=== PATIENT | male | born 1985 | race Caucasian/White ===

== ENCOUNTER 2017-01-03 23:19 | Emergency (ER) | payer MEDICAID ==
[~2017-01-03] VITALS: Ht 167.6 cm; Wt 89.0 kg
[2017-01-04] MEDS ORDERED: DICYCLOMINE 10 MG/5 ML ORAL SYR PO STA (02:48)
[2017-01-04] MEDS ORDERED: MAGNESIUM/ALUMINUM HYDROXIDE/SIMETHICONE 30ML UDC PO STA (02:48)
[2017-01-04] MEDS ORDERED: VISCOUS LIDOCAINE 2% 15 ML UDC PO STA (02:48)
[2017-01-04 03:17] LABS: BASOPHILS % 0.3 % (0.0-2.0); HEMATOCRIT. 44.2 % (42.0-52.0); HEMOGLOBIN. 15.3 g/dL (14.0-18.0); LYMPHOCYTES % 14.2 % (20.0-50.0); MEAN CORPUSCULAR VOLUME 86.5 fL (80.0-94.0); MEAN PLATELET VOLUME 8.3 fl (7.4-10.4); MONOCYTES % 9.7 % (2.0-8.0); NEUTROPHILS % 75.8 % (40.0-76.0); PLATELET 328 x1000/uL (130-400); RED BLOOD CELL COUNT 5.11 mill/uL (4.7-6.1); RED CELL DISTRIBUTION WIDTH 13.3 % (11.6-14.6)
[2017-01-04 03:19] LABS: CARBON DIOXIDE 22 mEq/L (21-32); CHLORIDE 103 mEq/L (98-107)
[2017-01-04 03:29] LABS: CLARITY URINE CLEAR (CLEAR); COLOR URINE YELLOW (YELLOW); GLUCOSE URINE NEGATIVE (NEGATIVE); KETONES URINE NEGATIVE (NEGATIVE); LEUKOCYTE ESTERASE URINE NEGATIVE (NEGATIVE); NITRITE URINE NEGATIVE (NEGATIVE); OCCULT BLOOD URINE NEGATIVE (NEGATIVE); PROTEIN URINE TRACE (NEGATIVE); SPECIFIC GRAVITY URINE 1.029 (1.005-1.030); UROBILINOGEN URINE 0.2 E.U./dL (0.2-1.0)
[2017-01-04] MEDS ORDERED: IBUPROFEN 800MG TABLET PO ONE (05:00)
[2017-01-04 05:08] VITALS: BP 120/79
== END 2017-01-04 05:05 | disposition home or self-care (01) ==
LOC: ER 23:21
DX: R10.9 Unspecified abdominal pain (principal); R19.7 Diarrhea, unspecified; R11.2 Nausea with vomiting, unspecified
CPT/HCPCS: 36415; 80053; 81001; 83690; 85025; 99284; Z7610

== ENCOUNTER 2020-12-06 22:25 | Emergency (ER) | payer MEDICAID ==
[~2020-12-06] VITALS: Ht 165.1 cm; Wt 91.0 kg
[2020-12-06 22:26] VITALS: BP 123/82
[2020-12-06] MEDS ORDERED: FLUORESCEIN SODIUM 1MG/STRIP RIGHTEYE ONE (23:00)
[2020-12-06] MEDS ORDERED: TETRACAINE 0.5% OPHTH DROPS 4ML RIGHTEYE ONE (23:00)
[2020-12-06] MEDS ORDERED: IBUPROFEN 600MG TABLET PO ONE (23:15)
[2020-12-07] MEDS ORDERED: NAPR-1176 MT (00:36)
== END 2020-12-07 01:17 | disposition home or self-care (01) ==
LOC: ER 22:25
DX: S00.211A Abrasion of right eyelid and periocular area, initial encounter (principal); S20.219A Contusion of unspecified front wall of thorax, initial encounter; M25.572 Pain in left ankle and joints of left foot; M25.562 Pain in left knee; M54.5 Low back pain; V49.9XXA Car occupant (driver) (passenger) injured in unspecified traffic accident, initial encounter; Y93.89 Activity, other specified; Y92.89 Other specified places as the place of occurrence of the external cause; Y99.8 Other external cause status
CPT/HCPCS: 71101; 72100; 73562; 73590; 73610; 73630; 99284